=== PATIENT | female | born 1990 | race Hispanic/Latino ===

== ENCOUNTER 2024-12-14 06:40 | Day surgery (SDC) | payer OTHER ==
[2024-12-14] VITALS (10 sets, daily range): BP systolic 101–121; BP diastolic 54–68; PULSE 65–78; RESP 15–18; TEMP 97.4–97.7
[~2024-12-14] VITALS: Ht 157.5 cm; Wt 108.4 kg
[2024-12-14] MEDS: 0.9%NACL 1000ML 1,000 ML IV ONE (06:56)
[2024-12-14] MEDS ORDERED: proPOFol 10 MG/ML 20ML VIAL IV ONE ×3 (09:39→10:00)
== END 2024-12-14 11:25 | disposition home or self-care (01) ==
LOC: ENDO 06:40 → DAH 06:40 → ENDO 11:25
PROVIDERS: ATTEND Internal Medicine Gastroenterology
DX: R10.13 Epigastric pain (principal); K29.70 Gastritis, unspecified, without bleeding; B96.81 Helicobacter pylori [H. pylori] as the cause of diseases classified elsewhere; T18.2XXA Foreign body in stomach, initial encounter; R11.0 Nausea; E66.9 Obesity, unspecified; Z68.41 Body mass index [BMI] 40.0-44.9, adult; Z79.899 Other long term (current) drug therapy
CPT/HCPCS: 81025; 43239; 43291; J7030; J2704 ×3; A4620; A4215 ×2; J3490